=== PATIENT | female | born 1950 | race Caucasian/White ===

== ENCOUNTER 2023-08-11 12:43 | Emergency (ER) | payer MEDICAID ==
[~2023-08-11] VITALS: Ht 157.5 cm; Wt 86.2 kg
[2023-08-11 12:44] VITALS: BP 126/84; PULSE 90; RESP 16; TEMP 97.7; O2SAT 100
[2023-08-11 13:10] VITALS: O2SAT 100
[2023-08-11 13:54] LABS: BLOOD GAS BASE EXCESS 2.1 mmol/L (-2.0-2.0); BLOOD GAS HCO3 26.1 mmol/L (22-26); BLOOD GAS PCO2 38.9 mmHg (35-45); BLOOD GAS PH 7.445 (7.35-7.45); BLOOD GAS PO2 60.5 mmHg (75-100)
[2023-08-11 14:23] LABS: BASOPHILS # (AUTO) 0.1 K/uL (0.00-0.22); BASOPHILS % (AUTO) 0.9 % (0.0-2.0); EOSINOPHILS # (AUTO) 0.1 K/uL (0-0.4); EOSINOPHILS % (AUTO) 0.5 % (0.0-4.0); HEMATOCRIT 38.4 % (36-48); HEMOGLOBIN 12.7 g/dL (12.0-16.0); LYMPHOCYTES # (AUTO) 2.9 K/uL (2.5-16.5); LYMPHOCYTES % (AUTO) 22.7 % (20.5-51.1); MEAN CORPUSCULAR HEMOGLOBIN 28 pg (27-31); MEAN CORPUSCULAR HGB CONC 33 g/dL (33-37); MEAN CORPUSCULAR VOLUME 83.3 fL (80-94); MONOCYTES % (AUTO) 8.1 % (1.7-9.3); NEUTROPHILS # (AUTO) 8.6 K/uL (1.8-7.7); NEUTROPHILS % (AUTO) 67.8 % (42.2-75.2); PLATELET COUNT (AUTO) 309 K/uL (140-450); RED CELL DISTRIBUTION WIDTH 14.5 % (11.6-13.7); WHITE BLOOD COUNT (AUTO) 12.6 K/uL (4.8-10.8)
[2023-08-11 14:50] LABS: BILIRUBIN,URINE NEGATIVE (NEGATIVE); BLOOD, URINE TRACE-I (NEGATIVE); COLOR,URINE YELLOW (YELLOW); LEUKOCYTE ESTERASE ,URINE 1+ (NEGATIVE); NITRITE, URINE NEGATIVE (NEGATIVE); PROTEIN,URINE NEGATIVE (NEGATIVE); UGLUCOSE NEGATIVE (NEGATIVE); UROBILINOGEN,URINE 0.2 EU/dL (0.2 - 1)
[2023-08-11 14:52] LABS: INR 0.96 (0.8-1.2); PROTHROMBIN TIME 10.1 secs (10.8-13.4)
[2023-08-11 14:55] LABS: ALANINE AMINOTRANSFERASE 20 U/L (12-78); ALBUMIN 3.6 g/dL (3.4-5.0); ALKALINE PHOSPHATASE 90 U/L (50-136); ANION GAP 12.1 (8-16); ASPARTATE AMINOTRANSFERASE 14 U/L (15-37); CALCIUM 8.6 mg/dL (8.5-10.1); CHLORIDE 104 mmol/L (98-107); CREATININE 0.8 mg/dL (0.6-1.3); GLUCOSE 141 mg/dL (74-106); POTASSIUM 3.1 mmol/L (3.5-5.1); SODIUM SERUM 141 mmol/L (136-145); TOTAL BILIRUBIN 0.5 mg/dL (0.0-1.0); TOTAL PROTEIN, SERUM 7.5 g/dL (6.4-8.2); UREA NITROGEN, BLOOD 14 mg/dL (7-18)
[2023-08-11 15:01] LABS: APPEARANCE,URINE HAZY (CLEAR)
[2023-08-11 15:06] LABS: LACTIC ACID 1.3 mmol/L (0.4-2.0)
[2023-08-11 15:07] LABS: PARTIAL THROMBOPLASTIN TIME 26.5 secs (22-35.6)
[2023-08-11 15:09] VITALS: O2SAT 98
[2023-08-11 15:20] LABS: BACTERIA,URINE FEW /HPF (None Seen); RBC,URINE NONE SEEN /HPF (0-5); SQUAMOUS EPITHELIAL CELL,UR 4-10 (MOD) /LPF (0-3 (FEW)); WBC,URINE 0-5 /HPF (0-5)
[2023-08-11 17:12] VITALS: O2SAT 98
[2023-08-11] MEDS ORDERED: POTASSIUM CHLORIDE 10 MEQ TABER PO ONE (17:40)
[2023-08-11 18:14] VITALS: TEMP 98.2
[2023-08-11] MEDS ORDERED: CEPH-588 PO (19:20)
[2023-08-11 19:34] VITALS: BP 148/47; PULSE 62; RESP 11; O2SAT 95
[2023-08-11 19:42] LABS: BLOOD GAS BASE EXCESS 0.2 mmol/L (-2.0-2.0); BLOOD GAS PCO2 31.6 mmHg (35-45); BLOOD GAS PH 7.479 (7.35-7.45); BLOOD GAS PO2 144.6 mmHg (75-100)
== END 2023-08-11 19:34 | disposition home or self-care (01) ==
LOC: MED 12:43
DX: R53.1 Weakness (principal); R09.02 Hypoxemia; I10 Essential (primary) hypertension; Z86.79 Personal history of other diseases of the circulatory system
CPT/HCPCS: 36415; 36600; 71045; 80053; 81001; 82803; 83605; 83880; 84443; 84484; 85025; 85379; 85610; 85730; 87040; 87086; 93005; 99285